=== PATIENT | female | born 1990 | race Two or more races ===

== ENCOUNTER → 2020-02-12 | Outpatient (CLI) | payer BC ==
[~2020-02-12] MED LIST: HYDR-2761 PO; MULT-505 PO; NORE1TAB27 PO
[2020-02-12 12:52] LABS: BASO # 0.1 x10^3/uL (0.0-0.2); BASO % 1 % (0-3); EOS # 0.2 x10^3/uL (0.0-0.7); EOS % 2 % (0-3); HEMATOCRIT 39.4 % (36.0-47.0); HEMOGLOBIN 13.4 g/dL (12.0-15.5); LYMPH # 2.8 x10^3/uL (1.0-4.8); LYMPH % 26 % (24-48); MEAN CORPUSCULAR HEMOGLOBIN 30 pg (25-35); MEAN CORPUSCULAR HGB CONC 34 g/dL (31-37); MEAN CORPUSCULAR VOLUME 88 fL (79-100); MONO # 0.5 x10^3/uL (0.0-1.1); MONO % 5 % (0-9); NEUT % 67 % (31-73); PLATELET COUNT 323 x10^3/uL (140-400); RED BLOOD COUNT 4.46 x10^6/uL (3.50-5.40); RED CELL DISTRIBUTION WIDTH 13.3 % (11.5-14.5); WHITE BLOOD COUNT 10.6 x10^3/uL (4.0-11.0)
[2020-02-12 12:54] LABS: BILIRUBIN,URINE NEGATIVE (NEG); CLARITY,URINE CLEAR; COLOR,URINE YELLOW; NITRITE,URINE NEGATIVE (NEG); PROTEIN,URINE NEGATIVE (NEG-TRACE); UROBILINOGEN,URINE 0.2 mg/dL (0.2 mg/dL)
[2020-02-12 13:03] LABS: SQUAMOUS EPITHELIAL CELL,UR MANY /LPF
[2020-02-12 13:04] LABS: BACTERIA,URINE MODERATE /HPF (0-FEW)
[2020-02-12 13:20] LABS: ALBUMIN 3.4 g/dL (3.4-5.0); ALBUMIN/GLOBULIN RATIO 0.8 (1.0-1.7); CALCIUM 8.9 mg/dL (8.5-10.1); CREATININE 0.8 mg/dL (0.6-1.0); GFR 85.4; POTASSIUM 3.8 mmol/L (3.5-5.1); TOTAL BILIRUBIN 0.3 mg/dL (0.2-1.0); TOTAL PROTEIN 7.8 g/dL (6.4-8.2)
== END | disposition home or self-care (01) ==
LOC: SURGPAT 12:24
PROVIDERS: ATTEND Obstetrics & Gynecology
DX: Z01.812 Encounter for preprocedural laboratory examination (principal); Z20.828 Contact with and (suspected) exposure to other viral communicable diseases
CPT/HCPCS: 80053; 81001; 85025; 87086; U0003

== ENCOUNTER 2020-02-18 07:58 | Observation (INO) | payer BC ==
[~2020-02-18] VITALS: Ht 157.5 cm; Wt 105.0 kg
[~2020-02-18 07:58] MED LIST changes: +HYDROmorphone 2 MG/ML VIAL IV PRN; +IV RINGERS,LACTATED 1000ML 1,000 ML IV SCH; +MORPHINE SULFATE 2 MG/ML VIAL. IV PRN; +ONDANSETRON PF 4 MG/2 ML VIAL. IV PRN; +fentaNYL PF VIAL 100 MCG/2 ML VIAL IV PRN
[2020-02-18] MEDS ORDERED: LIDOCAINE 2% PF 5 ML VIAL. ONE (08:02)
[2020-02-18] MEDS ORDERED: PROPOFOL 10 MG/ML (20ML) VIAL. IV ONE (08:02)
[2020-02-18] MEDS ORDERED: ROCURONIUM 50 MG/5 ML VIAL. ONE ×2 (08:02→11:46)
[2020-02-18] MEDS ORDERED: DEXAMETHASONE SOD PHOS 4 MG/ML VIAL ONE (08:02)
[2020-02-18] MEDS ORDERED: MIDAZOLAM HCL/PF 2 MG/2 ML VIAL. ONE (08:02)
[2020-02-18] MEDS ORDERED: ONDANSETRON PF 4 MG/2 ML VIAL. ONE (08:02)
[2020-02-18] MEDS ORDERED: fentaNYL PF VIAL 250 MCG/5 ML VIAL ONE (08:03)
[2020-02-18] MEDS ORDERED: BUPIVACAINE-EPI 0.5%-1:200000 MPF 30 ML VIAL. ONE (10:28)
[2020-02-18] MEDS ORDERED: INDIGOTINDISULFONATE SODIUM 40 MG/5 ML AMPUL. ONE (10:28)
[2020-02-18] MEDS ORDERED: ESTROGENS, CONJ VAGINAL CREAM 30GM TUBE. ONE (10:30)
[2020-02-18] MEDS ORDERED: SCOPOLAMINE 1.5MG PATCH. TD ONE (10:43)
[2020-02-18] MEDS ORDERED: NEOSTIGMINE METHYLSULFATE 5 MG/5 ML SYRINGE. ONE (12:18)
[2020-02-18] MEDS ORDERED: GLYCOPYRROLATE 1 MG/5 ML VIAL. ONE (12:18)
[2020-02-18] MEDS ORDERED: KETOROLAC 30 MG/ML VIAL. ONE (12:26)
[2020-02-18] MEDS ORDERED: fentaNYL PF VIAL 100 MCG/2 ML VIAL ONE (12:43)
[2020-02-18] MEDS ORDERED: PROCHLORPERAZINE 10 MG/2 ML VIAL. ONE (12:44)
--- NOTE | 2020-02-18 12:45 | PDOC ---
BRIEF OPERATIVE NOTE Date: Feb 18, 2020 Pre-Op Diagnosis menorrhagia, dysmenorrhea Post-Op Diagnosis same Procedure Performed LAVH/Bilateral salpingectomy Surgeon Dr. Adelina Velarde Evp Operations SUSHILA Cotto Anesthesiologist Dr. Pollack Anesthesia Type: General Blood Loss 100cc IV Fluid 1700cc Urine Output 150cc clear via gtz Specimens Obtained cervix, uterus with bilateral tubes Findings mildly enlarged uterus, prior tubal ligation, normal ovaries Complications none Operative Note [id number] ADELINA VELARDE MD Feb 18, 2020 12:45
[2020-02-18] MEDS ORDERED: MAGNESIUM HYDROXIDE 2,400 MG/30 ML ORAL.SUSP. PO PRN (13:00)
[2020-02-18] MEDS ORDERED: diphenhydrAMINE HCL 25 MG CAPSULE PO PRN (13:00)
[2020-02-18] MEDS ORDERED: MAG HYDROX/ALUMINUM HYD/SIMETH 30 ML ORAL.SUSP PO PRN (13:00)
[2020-02-18] MEDS ORDERED: 0.9 % SODIUM CHLORIDE 10 ML DISP.SYRIN. IV PRN (13:00)
[2020-02-18] MEDS ORDERED: LACTULOSE 20 GM/30 ML SOLUTION. PO PRN (13:00)
[2020-02-18] MEDS ORDERED: ZOLPIDEM 5 MG TABLET. PO PRN (13:00)
[2020-02-18] MEDS ORDERED: CALCIUM CARBONATE 500 MG TAB.CHEW PO PRN (13:00)
[2020-02-18] MEDS ORDERED: ONDANSETRON PF 4 MG/2 ML VIAL. IV PRN (13:00)
[2020-02-18] MEDS ORDERED: diphenhydrAMINE 50 MG/ML VIAL IV PRN (13:00)
[2020-02-18] MEDS ORDERED: MORPHINE SULFATE 2 MG/ML VIAL. IV PRN (13:00)
[2020-02-18] MEDS ORDERED: NALOXONE 0.4 MG/ML VIAL. IV PRN (13:00)
[2020-02-18] MEDS ORDERED: SIMETHICONE 80 MG TAB.CHEW PO PRN (13:00)
--- NOTE | 2020-02-18 13:11 | OP ---
DATE OF SURGERY: 02/18/2020 PREOPERATIVE DIAGNOSES: Menorrhagia, dysmenorrhea, failing an outpatient ablation. It was not even done, it was unsuccessful. POSTOPERATIVE DIAGNOSES: Menorrhagia, dysmenorrhea, failing an outpatient ablation, it was not even done, it was unsuccessful. PROCEDURE: Laparoscopic-assisted vaginal hysterectomy, bilateral salpingectomy. SURGEON: Ganga Velarde MD LEAF SUCKER OPERATOR: SUSHILA Cotto ANESTHESIOLOGIST: Chad Pollack MD ANESTHESIA: General. ESTIMATED BLOOD LOSS: 100 mL. URINE OUTPUT: 150 mL, clear via Man catheter. INTRAVENOUS FLUIDS: 1700 mL of Crystalloid. SPECIMENS: Cervix, uterus with segments of bilateral tubes because she had a prior tubal ligation. FINDINGS: Mildly enlarged uterus, prior tubal ligation, normal ovaries. No significant adhesive disease. COMPLICATIONS: None. DESCRIPTION OF PROCEDURE: This patient was taken to the operating room where general anesthesia was placed. The patient was placed in the dorsal lithotomy position in Apollo stirrups. The patient's abdomen and vagina were both prepped and draped in the normal sterile fashion and a Man catheter had been inserted under sterile technique. Upon my arrival, a timeout was performed. Once everyone agreed on the patient, the site, the procedure, antibiotics, the procedure was initiated. A bivalve speculum was placed in the patient's vagina. A single-tooth tenaculum was used to grasp the anterior lip of the cervix. A 10 mL of 0.5% Marcaine with epinephrine was used to circumferentially inject around the cervix for both hemodissection and hemostatic purposes later. The Valtchev uterine manipulator was placed through the endocervical os, locked on the single tooth tenaculum and the bivalve speculum was then removed. Top gloves were discarded and changed. Attention was then turned to the abdomen where a small supraumbilical skin incision was made with the scalpel. A curved Linda was used to dissect through the subcuticular layer to the fascia. The 5 mm Visiport was used to directly into the abdominal cavity. Opening patient pressure was 4-5 mmHg. Carbon dioxide gas was used to then appropriately insufflate the abdominal cavity to maintain a pressure of 15 mmHg. The patient was placed in Trendelenburg position. There was no adhesive disease on the anterior abdominal wall. So, the wall was transilluminated laterally on the right and left sides, finding an area clear of any vasculature, making a small incision and placing the 5 mm disposable trocars in under direct visualization. A 4-5 mL of air was placed in the trocar cuff on the lateral ports. At this point, the port was moved laterally to look at the umbilical port. Once it was in and clear, it was also insufflated with 4-5 mL of air in the trocar cuff. There were some adhesions on the right side over near the appendix area, these were left untouched. The cervix and uterus were elevated. There was nothing behind it. Nothing on the sidewall, so the left tube and ovary were elevated going below the tube above the ovary, cauterizing and cutting the distal segment of the tube came off, the proximal segment was still attached to the uterus. This was done exactly the same on the right side. The distal segment of the tube came off and we were able to pull these out through 5 mm laparoscopic port and they were passed off for pathology. Then crossing the left uteroovarian pedicle, cauterizing and cutting and then the left round ligament, cauterizing and cutting with the LigaSure. This was done exactly the same on the right, crossing the right uteroovarian pedicle, cauterizing and cutting with the LigaSure and then the right round ligament. Once this was done, the bladder flap was elevated, pushing the uterus cephalad to the head with the manipulator and the monopolar hook was used to go across and create the bladder flap sharply and gently pulling it down and make the bladder came immediately down without difficulty. At this point, the uterine vessels were obtained on the right side. Once the bladder was down and staying inside that pedicle going down and hugging the cervix, going down through the cardinal and broad ligaments, taking it down on the right side. The left side was much easier crossing contralaterally hugging the uterus and cervix and just taking bites down to the level of the uterosacral, hugging the cervix, the whole way down and crossing contralaterally and staying vertical right on it, cauterizing and cutting with the LigaSure. Once the bladder was down, there were no adhesions. The uterus was blanched at this point and completely free. All instruments were removed from the abdomen and attention was turned vaginally. The single tooth and Valtchev were removed. A weighted speculum was placed in the patient's vagina. Thyroid Paige clamps were placed on the anterior and posterior lips of the cervix respectively. A scalpel was used to make a circumferential incision in the cervix. An open Ray-Mariano 4 x 4 was used to gently push up the anterior bladder peritoneum and the anterior cul-de-sac was digitally and bluntly entered. The 4 x 4 was taken back out and passed off to the back table and the curved [place] was placed in the anterior cul-de-sac. Cervix was elevated and the posterior cul-de-sac was sharply entered with the curved Mendez scissors. A #0 Vicryl stitch was used to secure the posterior peritoneum here to the vaginal cuff securing the posterior peritoneum to the vaginal cuff, tagging it with a curved Linda clamp and cutting and passing the needle off. The short weighted speculum was then removed and replaced with the long weighted Per speculum in the posterior cul-de-sac. Curved Sunshine clamps x 2 were placed on the patient's left uterosacral ligament where they were doubly clamped with curved Heaneys, cut with curved Mendez scissors and suture ligated x 2 with 0 Vicryl. Second one was taken through the vaginal cuff securing uterosacral ligament to the vaginal cuff, tagging it with a straight Linda clamp and cutting and passing the needle off. This was done exactly the same on the right side, double clamping the uterosacrals with curved Sunshine's, cutting with curved Mendez scissors, suture ligating x 2 with 0 Vicryl, taking the second one through the vaginal cuff and tagging it with a straight Linda clamp. The remaining pedicle on both sides were delineated with the curved mixture and the vaginal LigaSure was used to cauterize and cut the remaining pedicles. The cervix, uterus, and the remainder of the tubes were delivered in toto and passed off for permanent pathology. A sponge stick was used to examine the pedicles. Once they were hemostatic, the anterior bladder peritoneum was grasped with a long Allis. The long Per speculum was removed and replaced with the short weighted vaginal speculum. A 2-0 Vicryl was taken through the anterior bladder peritoneum, left uterosacral ligament, posterior peritoneum and right uterosacral ligament, thus closing the peritoneum in a pursestring like fashion. The right and left uterosacral tags were clipped. The cuff was closed in an anterior to posterior running locked fashion with a full length 2-0 Vicryl and tied to the posterior cuff tag. The cuff was completely hemostatic. At this point, all sponge, lap and needle counts had been correct x 2 by OR personnel. So, all instruments were taken out. All gloves were discarded and changed and attention was turned back above for a second look. She was placed back in Trendelenburg. The gas was reinsufflated. Copious irrigation revealed hemostasis. There was some slight bleeding on the right ovary like above at where the tube was taken off. This was cauterized with the LigaSure with excellent results. An irrigation revealed hemostasis. Tisseel was placed over the vaginal cuff with excellent results and there was nothing at all welling up. The right and left lower quadrant ports, the 4-5 mL of air was taken out of the trocar cuff. They were removed under direct visualization and were hemostatic. Gas was released from the umbilical port. The cuff was taken down and then it was removed. All three port sites had been closed with 4-0 nylon and the patient is being awakened from anesthesia. GANGA VELARDE MD DR: PRINCESS/dominick JOB#: [id number] / [id number]
[2020-02-18] MEDS: PROCHLORPERAZINE 10 MG/2 ML VIAL. IV PRN ×2 (13:15→13:43)
[2020-02-18] MEDS: fentaNYL PF VIAL 100 MCG/2 ML VIAL IV PRN ×2 (13:17→13:23)
[2020-02-18 15:20] VITALS: BP 114/77
[2020-02-18] MEDS: HYDROcodone/APAP 5/325MG 1 TAB TABLET PO PRN ×2 (15:32→19:28)
[2020-02-18 15:35] VITALS: BP 115/74
[2020-02-18 16:00] VITALS: BP 124/78
[2020-02-18 16:15] VITALS: BP 130/88
[2020-02-18 17:33] VITALS: BP 132/79
[2020-02-18 20:00] VITALS: BP 117/79
[2020-02-18] MEDS: oxyCODONE/APAP 5/325 1 TAB TABLET PO PRN (23:22)
[2020-02-19] VITALS: BP 115/70
[2020-02-19] MEDS: oxyCODONE/APAP 5/325 1 TAB TABLET PO PRN ×2 (04:27→09:07)
[2020-02-19 04:33] VITALS: BP 100/66
[2020-02-19 07:30] VITALS: BP 130/91
[2020-02-19 08:33] LABS: CALCIUM 8.7 mg/dL (8.5-10.1); CREATININE 0.8 mg/dL (0.6-1.0); GFR 84.8; POTASSIUM 4.4 mmol/L (3.5-5.1)
--- NOTE | 2020-02-19 08:58 | PDOC ---
SURGICAL PROGRESS NOTE DATE: 02/19/20 TIME: 08:50 Subjective Doing well without complaints. No n/v and tolerating a regular diet. Ambulating well. feeling good Vital Signs Vital Signs Date Time Temp Pulse Resp B/P (MAP) Pulse Ox O2 Delivery O2 Flow Rate FiO2 02/19/20 07:30 98.3 97 18 130/91 (104) 95 Room Air 98.3 02/18/20 15:20 10.0 I&O Intake and Output0 02/19/20 07:00 Intake Total 2970 ml Output Total 550 ml Balance 2420 ml Intake Oral 1120 ml IV Total 1850 ml Output Urine Total 450 ml Estimated Blood Loss 100 ml # Voids 4 PATIENT HAS A WHEATLEY: No General: Alert, Oriented X3, Cooperative, No acute distress HEENT: Atraumatic Heart: Regular rate Abdomen: Soft, No tenderness, Other (all port sites c/d/i) Extremities: No clubbing, No cyanosis, No edema Skin: No rashes, No breakdown Neuro: Normal speech Psych/Mental Status: Mental status NL, Mood NL Labs Laboratory Tests Test 02/18/20 08:39 02/19/20 07:05 Bedside Urine HCG, Qualitative Hcg negative (Negative) Hematocrit 35.4 % (36.0-47.0) Sodium Level 139 mmol/L (136-145) Potassium Level 4.4 mmol/L (3.5-5.1) Chloride Level 104 mmol/L (98-107) Carbon Dioxide Level 28 mmol/L (21-32) Anion Gap 7 (6-14) Blood Urea Nitrogen 9 mg/dL (7-20) Creatinine 0.8 mg/dL (0.6-1.0) Estimated GFR (Cockcroft-Gault) 84.8 Glucose Level 102 mg/dL (70-99) Calcium Level 8.7 mg/dL (8.5-10.1) Laboratory Tests Test 02/19/20 07:05 Hematocrit 35.4 % (36.0-47.0) Sodium Level 139 mmol/L (136-145) Potassium Level 4.4 mmol/L (3.5-5.1) Chloride Level 104 mmol/L (98-107) Carbon Dioxide Level 28 mmol/L (21-32) Anion Gap 7 (6-14) Blood Urea Nitrogen 9 mg/dL (7-20) Creatinine 0.8 mg/dL (0.6-1.0) Estimated GFR (Cockcroft-Gault) 84.8 Glucose Level 102 mg/dL (70-99) Calcium Level 8.7 mg/dL (8.5-10.1) I have reviewed the following labs, vitals, nursing Cardiovascular: No pertinent hx Pulmonary: No pertinent hx GI: No pertinent hx Heme/Onc: No pertinent hx Psych: No pertinent hx Infectious disease: No pertinent hx ENT: No pertinent hx Assessment/Plan POD#1 s/p LAVH/bilateral salpingectomy Routine PO care d/c to home later today NPV x 6 weeks light/limited activity x [address] for at least one week or while on narcotic pain meds keep scheduled follow up with me in one week already has narcotics at home ok to resume any home meds upon discharge call or return sooner for any other questions or concerns not limited to but including pain unrelieved with pain meds, increased or unexplained vaginal bleeding or T>100.4 Justicifation of Admission Dx: Justifications for Admission: Justification of Admission Dx: Yes GANGA MONTES DE OCA MD Feb 19, 2020 08:58
--- NOTE | 2020-02-19 09:02 | PDOC3 ---
Discharge Summary Visit Information Date of Admission: Feb 18, 2020 Date of Discharge: Feb 19, 2020 Final Diagnosis menorrhagia Brief Hospital Course Allergies Allergies Coded Allergies Type Severity Reaction Last Updated Verified No Known Drug Allergies 02/12/20 No Vital Signs Vital Signs Date Time Temp Pulse Resp B/P (MAP) Pulse Ox O2 Delivery O2 Flow Rate FiO2 02/19/20 07:30 98.3 97 18 130/91 (104) 95 Room Air 98.3 02/18/20 15:20 10.0 Lab Results Laboratory Tests Test 02/18/20 08:39 02/19/20 07:05 Bedside Urine HCG, Qualitative Hcg negative (Negative) Hematocrit 35.4 % (36.0-47.0) Sodium Level 139 mmol/L (136-145) Potassium Level 4.4 mmol/L (3.5-5.1) Chloride Level 104 mmol/L (98-107) Carbon Dioxide Level 28 mmol/L (21-32) Anion Gap 7 (6-14) Blood Urea Nitrogen 9 mg/dL (7-20) Creatinine 0.8 mg/dL (0.6-1.0) Estimated GFR (Cockcroft-Gault) 84.8 Glucose Level 102 mg/dL (70-99) Calcium Level 8.7 mg/dL (8.5-10.1) Laboratory Tests Test 02/19/20 07:05 Hematocrit 35.4 % (36.0-47.0) Sodium Level 139 mmol/L (136-145) Potassium Level 4.4 mmol/L (3.5-5.1) Chloride Level 104 mmol/L (98-107) Carbon Dioxide Level 28 mmol/L (21-32) Anion Gap 7 (6-14) Blood Urea Nitrogen 9 mg/dL (7-20) Creatinine 0.8 mg/dL (0.6-1.0) Estimated GFR (Cockcroft-Gault) 84.8 Glucose Level 102 mg/dL (70-99) Calcium Level 8.7 mg/dL (8.5-10.1) Brief Hospital Course Ms. Teran is a 30 old female who presented with menorrhagia desiring defi nitive therapy. She underwent LAVH with bilateral salpingectomy yesterday without complications. She has had an unremarkable postoperative course. She is ambulating, voiding without catheter, tolerating regular diet. She will be discharged home later today. Assessment Assessment POD#1 s/p LAVH/bilateral salpingectomy Routine PO care d/c to home later today NPV x 6 weeks light/limited activity x [address] for at least one week or while on narcotic pain meds keep scheduled follow up with me in one week already has narcotics at home ok to resume any home meds upon discharge call or return sooner for any other questions or concerns not limited to but including pain unrelieved with pain meds, increased or unexplained vaginal bleeding or T>100.4 Discharge Information Condition at Discharge: Improved Follow Up: Weeks Disposition/Orders: D/C to Home Scheduled Info (No Known Medications Prior To Admisstion) Each, 1 EACH MC DAILY for none, (Reported) Entered as Reported by: Diana Hall on 02/12/20 [id number] Patient Instructions Patient Instructions POD#1 s/p LAVH/bilateral salpingectomy Routine PO care d/c to home later today NPV x 6 weeks light/limited activity x [address] for at least one week or while on narcotic pain meds keep scheduled follow up with me in one week already has narcotics at home ok to resume any home meds upon discharge call or return sooner for any other questions or concerns not limited to but including pain unrelieved with pain meds, increased or unexplained vaginal bleeding or T>100.4 Justicifation of Admission Dx: Justifications for Admission: Justification of Admission Dx: Yes GANGA MONTES DE OCA MD Feb 19, 2020 09:02
[2020-02-19 09:50] VITALS: BP 128/81
--- NOTE | 2020-02-22 15:08 | PATHOLOGY ---
[facility] Accession Number: [id number] . 01 Material submitted: . uterus - CERVIX, UTERUS, BILATERAL TUBES . 01 Clinical history: . EXCESSIVE MENSES . 02 Diagnosis: Uterus and detached fallopian tubes, hysterectomy and bilateral salpingectomy: - Adenomyosis, uterine corpus, focal (uterine weight 113 grams). - Mild chronic cervicitis with focal squamous metaplasia. - Weakly secretory endometrium. - Paratubal cyst, side indeterminate. (JPM:pranav; 02/22/2020) [facility] [place] 02/22/2020 1241 Local . 02 Comment: There is no atypia or evidence of malignancy. (JPM:pranav; 02/22/2020) . 02 Electronically signed: . Kiran Obando MD, Pathologist NPI- [id number] . 01 Gross description: . The specimen is received in formalin labeled " Amna Vigeliangreen, cervix, uterus, bilateral tubes". Received is a 113 g, 9.7 x 5.9 x 4.4 cm uterus with attached cervix and detached fallopian tubes, weighing 1 g each. The uterine serosa is pink-pizarro and smooth in appearance with a single subserosal nodule at the fundal aspect measuring 0.7 cm. The 2.0 cm cervical os is surrounded by pink-pizarro, smooth to slightly disrupted ectocervical mucosa. The uterus is oriented using the peritoneal reflection and the anterior paracervical margin is inked black. The uterus is opened laterally to reveal a pale pizarro, corrugated endocervical canal measuring 2.5 cm in length. The endometrial cavity is triangular measuring 5.1 cm in length by 2.3 cm in width. The endometrium is pale piazrro, glistening to slightly hemorrhagic in appearance and measures 0.1 cm in thickness. Serial sectioning reveals a pizarro-pink, trabeculated myometrium measuring up to 2.0 cm in thickness with no grossly distinct nodules or lesions. . The first fimbriated fallopian tube measures 1.0 cm in length by 0.5 cm in diameter. The serosal surface is inked black. Sectioning reveals a patent lumen. . The second fimbriated fallopian tube measures 1.1 cm in length by 0.5 cm in diameter. There is an attached paratubal cyst identified measuring 1.0 cm filled with clear fluid. Sectioning reveals a patent lumen. The specimen is submitted representatively as follows: . A1 12:00 cervix A2 6:00 cervix A3 entire subserosal nodule A4 anterior endomyometrium A5 posterior endomyometrium A6 insurance follow up representative sections from each fallopian tube. (CAA; 02/19/2020) [facility] 02/19/2020 1618 Local . 02 Pathologist provided ICD-10: N80.0, N72, N83.8 . 02 CPT . 953933 Specimen Comment: A courtesy copy of this report has been sent to [phone], [phone] Specimen Comment: [id number] Specimen Comment: Report sent to / DR GARCIA Performed at: 01 [facility] [address], [place], [place] [id number] MD Huber Coburn MD Phone: [phone] Performed at: 02 [facility] [address], [place] [id number] MD Kiran Obando MD Phone: [phone]
== END 2020-02-19 10:05 | disposition home or self-care (01) ==
LOC: SURG 07:58 → 3 NORTH 13:00 → INTOOBSV 13:00 → OBSVTOIN 13:00
PROVIDERS: ADMIT Obstetrics & Gynecology; ATTEND Obstetrics & Gynecology
DX: N94.6 Dysmenorrhea, unspecified (principal); N92.0 Excessive and frequent menstruation with regular cycle
CPT/HCPCS: 36415; 58552; 80048; 81025; 85014; 86850; 86900; 86901; 96361; 96365; 96366; A7015; G0378; G0379; J0690; J0780; J1100; J1885; J2250; J2405; J2704; J2710; J3010; J3480; J3490; J7030; J7120

== ENCOUNTER 2020-06-21 03:46 | Emergency (ER) | payer BC ==
[~2020-06-21] VITALS: Ht 157.5 cm; Wt 100.0 kg
[~2020-06-21 03:46] MED LIST changes: -HYDROmorphone 2 MG/ML VIAL IV PRN; -IV RINGERS,LACTATED 1000ML 1,000 ML IV SCH; -MORPHINE SULFATE 2 MG/ML VIAL. IV PRN; -ONDANSETRON PF 4 MG/2 ML VIAL. IV PRN; -fentaNYL PF VIAL 100 MCG/2 ML VIAL IV PRN
--- NOTE | 2020-06-21 03:59 | ED.ADGEN ---
General Adult EDM: Chief Complaint: FLANK PAIN HPI: HPI: Patient is a 30 year old female for right flank pain. Says the pain started about a day and a half ago is gradually getting worse. Has moved slightly down side from her back. Patient states she has a known history of kidney stones is hypothyroid several times. Recently had an ultrasound done by her primary care for her liver who noted there were several stones in the right kidney. Says she has had a difficult time urinating. Has the urge to urinate but only very little comes out. Has had several episodes of vomiting. Change in bowel movements. No fevers, cough. Her quarantined for Covid and he was diagnosed +3 weeks ago and abdomen quarantine for over a week. Review of Systems: Review of Systems: All other systems within normal limits except for as noted in the HPI Current Medications: Current Medications Medications (Trade) Dose Ordered Sig/Barbara Start Time Stop Time Status Last Admin Dose Admin Fentanyl Citrate (Fentanyl 2ml Vial) 100 mcg STK-MED ONCE 06/21/20 04:01 06/21/20 04:02 DC Ketorolac Tromethamine (Toradol 15mg Vial) 15 mg STK-MED ONCE 06/21/20 04:01 06/21/20 04:02 DC Ondansetron HCl (Zofran) 4 mg STK-MED ONCE 06/21/20 04:01 06/21/20 04:02 DC Allergies: Allergies: Allergies Coded Allergies Type Severity Reaction Last Updated Verified No Known Drug Allergies 02/12/20 No Physical Exam: PE: Constitutional: Well developed, well nourished, severe acute distress, non-toxic appearance. [] HENT: Normocephalic, atraumatic, bilateral external ears normal, nose normal. [] Eyes: PERRLA, conjunctiva normal, no discharge. [] Neck: No rigidity, supple, no stridor. [] Cardiovascular: Regular rate and rhythm, brisk cap refill [] Lungs & Thorax: Non labored symmetric respirations, no tachypnea or respiratory distress [] Abdomen: Soft, nondistended. Skin: Warm, dry, no erythema, no rash. [] Back: Unremarkable, right CVA tenderness Extremities: No deformities, range of motion grossly intact, no lower extremity edema [] Neurologic: Alert and oriented X 3, no focal deficits noted. [] Psychologic: Affect normal, judgement normal, mood normal. [] Current Patient Data: Labs: Laboratory Tests Test 06/21/20 04:00 06/21/20 04:20 White Blood Count 10.9 x10^3/uL (4.0-11.0) Red Blood Count 4.54 x10^6/uL (3.50-5.40) Hemoglobin 13.7 g/dL (12.0-15.5) Hematocrit 39.8 % (36.0-47.0) Mean Corpuscular Volume 88 fL (79-100) Mean Corpuscular Hemoglobin 30 pg (25-35) Mean Corpuscular Hemoglobin Concent 35 g/dL (31-37) Red Cell Distribution Width 13.0 % (11.5-14.5) Platelet Count 336 x10^3/uL (140-400) Neutrophils (%) (Auto) 55 % (31-73) Lymphocytes (%) (Auto) 33 % (24-48) Monocytes (%) (Auto) 9 % (0-9) Eosinophils (%) (Auto) 2 % (0-3) Basophils (%) (Auto) 1 % (0-3) Neutrophils # (Auto) 6.0 x10^3/uL (1.8-7.7) Lymphocytes # (Auto) 3.6 x10^3/uL (1.0-4.8) Monocytes # (Auto) 1.0 x10^3/uL (0.0-1.1) Eosinophils # (Auto) 0.2 x10^3/uL (0.0-0.7) Basophils # (Auto) 0.1 x10^3/uL (0.0-0.2) Sodium Level 140 mmol/L (136-145) Potassium Level 3.5 mmol/L (3.5-5.1) Chloride Level 103 mmol/L (98-107) Carbon Dioxide Level 22 mmol/L (21-32) Anion Gap 15 (6-14) H Blood Urea Nitrogen 11 mg/dL (7-20) Creatinine 0.9 mg/dL (0.6-1.0) Estimated GFR (Cockcroft-Gault) 74.0 BUN/Creatinine Ratio 12 (6-20) Glucose Level 108 mg/dL (70-99) H Calcium Level 9.5 mg/dL (8.5-10.1) Total Bilirubin 0.3 mg/dL (0.2-1.0) Aspartate Amino Transferase (AST) 97 U/L (15-37) H Alanine Aminotransferase (ALT) 210 U/L (14-59) H Alkaline Phosphatase 93 U/L (46-116) Total Protein 8.2 g/dL (6.4-8.2) Albumin 3.7 g/dL (3.4-5.0) Albumin/Globulin Ratio 0.8 (1.0-1.7) L Lipase 71 U/L (73-393) L Urine Collection Type U cath Urine Color Rupinder Urine Clarity Clear Urine pH 5.5 (<5.0-8.0) Urine Specific Webster >=1.030 (1.000-1.030) Urine Protein 30 mg/dL (NEG-TRACE) Urine Glucose (UA) Negative mg/dL (NEG) Urine Ketones (Stick) Negative mg/dL (NEG) Urine Blood Large (NEG) Urine Nitrite Negative (NEG) Urine Bilirubin Negative (NEG) Urine Urobilinogen Dipstick 0.2 mg/dL (0.2 mg/dL) Urine Leukocyte Esterase Small (NEG) Urine RBC Tntc /HPF (0-2) Urine WBC 5-10 /HPF (0-4) Urine Squamous Epithelial Cells Mod /LPF Urine Bacteria Few /HPF (0-FEW) Urine Mucus Mod /LPF Laboratory Tests 06/21/20 04:00 Laboratory Tests 06/21/20 04:00 Vital Signs: Vital Signs Date Time Temp Pulse Resp B/P (MAP) Pulse Ox O2 Delivery O2 Flow Rate FiO2 06/21/20 04:05 20 06/21/20 03:55 98.0 77 142/78 (99) 96 Room Air 98.0 EKG: EKG: [] Heart Score: Risk Factors: Risk Factors: DM, Current or recent (<one month) smoker, HTN, HLP, family history of CAD, obesity. Risk Scores: Score 0 - 3: 2.5% MACE over next 6 weeks - Discharge Home Score 4 - 6: 20.3% MACE over next 6 weeks - Admit for Clinical Observation Score 7 - 10: 72.7% MACE over next 6 weeks - Early Invasive Strategies Radiology/Procedures: Radiology/Procedures: CT abdomen and pelvis without contrast PQRS statement: CT scans at this facility use dose reduction including either au tomated exposure control, iterative reconstructions, and /or weight based radiation dosing via mA and kV modification when appropriate to reduce radiation dose to as low as reasonably achievable. HISTORY: Right flank pain. Kidney stone. Abdomen findings: Liver, gallbladder, pancreas, spleen, adrenal glands unremarkable. Nonobstructing left renal calculi. Mild right renal hydronephrosis renal pelvis diameter 2 cm and dilation of the ureter associated with a 3 mm right ureterovesical junction obstructing calculus. Appendix is negative. No obstruction or inflammation the GI tract. No abdominal fluid. Pelvis findings: Hysterectomy. 3 mm right ureterovesical junction calculus of the bladder. Ovaries, rectum and bones are unremarkable. IMPRESSION: 1. Mild right renal hydronephrosis associated with a 3 mm obstructing ureterovesical junction calculus. 2. Nonobstructive left nephrolithiasis. 3. Appendix is negative.[] Course & Med Decision Making: Course & Med Decision Making Pertinent Labs and Imaging studies reviewed. (See chart for details) [] Patient's pain is improved and is tolerable. Discussed patient's history of millimeter stone with an 80% past rate. Will give antiemetics, pain control and tamsulosin. Patient has a urologist and will call when the office opens to schedule follow-up appointment. Given return precautions. Small amount of white cells and leuk esterase in urine without significant evidence of infection. Likely due to large amount of red blood cells. Moderate squames cells with only few bacteria. More consistent with contamination Bello Disclaimer: Bello Disclaimer: This electronic medical record was generated, in whole or in part, using a voice recognition dictation system. Departure Departure Impression: Primary Impression: Kidney stone on right side Disposition: 01 DC HOME SELF CARE/HOMELESS Condition: IMPROVED Referrals: WARREN GARCIA (PCP) Patient Instructions: Diet for Kidney Stones Additional Instructions: Take ibuprofen and oxycodone for pain. Take ondansetron for nausea give 20 minutes to work before eating or taking other medications. Take tamsulosin nightly, may discontinue when stone is passed. Scripts Ondansetron (ONDANSETRON ODT) 4 Mg Tab.rapdis 1 TAB PO PRN Q6-8HRS PRN for NAUSEA for 5 Days, #16 TAB Prov: MASOOD FIGUEROA MD 06/21/20 Oxycodone/Apap 5-325 (PERCOCET 5-325 MG TABLET ) 1 Each Tablet 1 TAB PO PRN Q6HRS PRN for PAIN for 3 Days, #12 TAB 0 Refills Prov: MASOOD FIGUEROA MD 06/21/20 Ibuprofen (IBUPROFEN) 800 Mg Tablet 800 MG PO PRN Q8HRS PRN for PAIN for 30 Days, #20 TAB Prov: MASOOD FIGUEROA MD 06/21/20 Tamsulosin Hcl (FLOMAX) 0.4 Mg Cap.er.24h 1 CAP PO QHS for kidney stone for 10 Days, #10 CAP 11 Refills Prov: MASOOD FIGUEROA MD 06/21/20 MASOOD FIGUEROA MD Jun 21, 2020 03:59
[2020-06-21] MEDS ORDERED: fentaNYL PF VIAL 100 MCG/2 ML VIAL ONE (04:01)
[2020-06-21] MEDS ORDERED: KETOROLAC 15 MG/ML VIAL. ONE (04:01)
[2020-06-21] MEDS ORDERED: ONDANSETRON PF 4 MG/2 ML VIAL. ONE (04:01)
[2020-06-21 04:08] LABS: BASO # 0.1 x10^3/uL (0.0-0.2); BASO % 1 % (0-3); EOS # 0.2 x10^3/uL (0.0-0.7); EOS % 2 % (0-3); HEMATOCRIT 39.8 % (36.0-47.0); HEMOGLOBIN 13.7 g/dL (12.0-15.5); LYMPH # 3.6 x10^3/uL (1.0-4.8); LYMPH % 33 % (24-48); MEAN CORPUSCULAR HEMOGLOBIN 30 pg (25-35); MEAN CORPUSCULAR HGB CONC 35 g/dL (31-37); MEAN CORPUSCULAR VOLUME 88 fL (79-100); MONO % 9 % (0-9); NEUT % 55 % (31-73); PLATELET COUNT 336 x10^3/uL (140-400); RED BLOOD COUNT 4.54 x10^6/uL (3.50-5.40); WHITE BLOOD COUNT 10.9 x10^3/uL (4.0-11.0)
[2020-06-21 04:27] LABS: BILIRUBIN,URINE NEGATIVE (NEG); CLARITY,URINE CLEAR; COLOR,URINE AMBER; NITRITE,URINE NEGATIVE (NEG); PH,URINE 5.5 (<5.0-8.0); PROTEIN,URINE 30 mg/dL (NEG-TRACE); UROBILINOGEN,URINE 0.2 mg/dL (0.2 mg/dL)
[2020-06-21] MEDS ORDERED: fentaNYL PF VIAL 100 MCG/2 ML VIAL IVP ONE (04:30)
[2020-06-21] MEDS ORDERED: ONDANSETRON PF 4 MG/2 ML VIAL. IVP ONE (04:30)
[2020-06-21] MEDS ORDERED: KETOROLAC 15 MG/ML VIAL. IVP ONE (04:30)
[2020-06-21 04:34] LABS: BACTERIA,URINE FEW /HPF (0-FEW); RBC,URINE TNTC /HPF (0-2)
--- NOTE | 2020-06-21 04:42 | RAD ---
CT abdomen and pelvis without contrast PQRS statement: CT scans at this facility use dose reduction including either automated exposure cont rol, iterative reconstructions, and /or weight based radiation dosing via mA and kV modification when appropriate to reduce radiation dose to as low as reasonably achievable. HISTORY: Right flank pain. Kidney stone. Abdomen findings: Liver, gallbladder, pancreas, spleen, adrenal glands unremarkable. Nonobstructing l eft renal calculi. Mild right renal hydronephrosis renal pelvis diameter 2 cm and dilation of the ure ter associated with a 3 mm right ureterovesical junction obstructing calculus. Appendix is negative. No obstruction or inflammation the GI tract. No abdominal fluid. Pelvis findings: Hysterectomy. 3 mm right ureterovesical junction calculus of the bladder. Ovaries, r ectum and bones are unremarkable. IMPRESSION: 1. Mild right renal hydronephrosis associated with a 3 mm obstructing ureterovesical junction calculu s. 2. Nonobstructive left nephrolithiasis. 3. Appendix is negative. Electronically signed by: Kuldeep Meehan MD (06/21/2020 4:40 AM) [facility]
[2020-06-21 04:53] VITALS: BP 133/75
[2020-06-21 04:53] LABS: CALCIUM 9.5 mg/dL (8.5-10.1); CREATININE 0.9 mg/dL (0.6-1.0); POTASSIUM 3.5 mmol/L (3.5-5.1)
[2020-06-21 05:00] LABS: ALBUMIN 3.7 g/dL (3.4-5.0); ALBUMIN/GLOBULIN RATIO 0.8 (1.0-1.7); TOTAL BILIRUBIN 0.3 mg/dL (0.2-1.0); TOTAL PROTEIN 8.2 g/dL (6.4-8.2)
[2020-06-21] MEDS ORDERED: OXYC1TAB15 PO (05:13)
[2020-06-21] MEDS ORDERED: TAMS0.4C97 PO (05:13)
[2020-06-21] MEDS ORDERED: ONDA4TAB12 PO (05:13)
[2020-06-21] MEDS ORDERED: IBUP-1060 PO (05:13)
[2020-06-21] MEDS ORDERED: TAMSULOSIN 0.4 MG CAP.ER.24H. PO ONE (05:30)
[2020-06-21] MEDS ORDERED: oxyCODONE/APAP 5/325 1 TAB TABLET PO ONE (05:30)
== END 2020-06-21 05:25 | disposition home or self-care (01) ==
LOC: ER 03:46
DX: N13.2 Hydronephrosis with renal and ureteral calculous obstruction (principal); R10.9 Unspecified abdominal pain; R11.2 Nausea with vomiting, unspecified; E03.9 Hypothyroidism, unspecified; Z87.442 Personal history of urinary calculi
CPT/HCPCS: 36415; 74176; 80053; 81001; 83690; 85025; 87086; 96374; 96375; 99284; J1885; J2405; J3010

== ENCOUNTER 2020-06-25 18:37 | Emergency (ER) | payer BC ==
[~2020-06-25] VITALS: Ht 157.5 cm; Wt 99.1 kg
[~2020-06-25 18:37] MED LIST changes: +IBUP-1060 PO; +ONDA4TAB12 PO; +OXYC1TAB15 PO; +TAMS0.4C97 PO
[2020-06-25 19:23] VITALS: BP 129/82
[2020-06-25] MEDS ORDERED: PRED50TA PO (19:52)
--- NOTE | 2020-06-25 19:53 | PHYS DOC ---
Past Medical History Past Medical History: Kidney Stone, Other Additional Past Medical Histor: gestational diabetes, FATTY LIVER Past Surgical History: Hysterectomy, Tubal ligation, Other Additional Past Surgical Histo: lithotripsy, breast reduction Smoking Status: Never Smoker Alcohol Use: Rarely General Adult EDM: Chief Complaint: ALLERGIC REACTION HPI: HPI: Patient is a 30 year old female presenting stating she believes she has an allergic reaction to Flomax. Patient states she was put on several medications including Flomax, naproxen and oxycodone on June 21, 2020 which is roughly 4 days ago for kidney stone. She states she has never taken Flomax before. She states she took first dose of flomax in the ED on June 21, 2020 with no issues. She states yesterday she took a dose of flomax with the other medicine and today she noted she had blotches on her forearms. She also states she felt her tongue was swollen and she had a forehead rash. She went to urgent care where she was given a steroid injection and instructed to take Zyrtec when she gets home which she took. She states symptoms subsided then returned. She states she was told to come to the ED. Denies any difficulty swallowing. Denies any lip swelling. Denies any throat swelling. Review of Systems: Review of Systems: Constitutional: Denies fever or chills. [] Eyes: Denies change in visual acuity. [] HENT: Reports tongue swelling. Denies nasal congestion or sore throat. [] Respiratory: denies cough or shortness of breath. [] Cardiovascular: Denies chest pain or edema. [] GI: Denies abdominal pain, nausea, vomiting, bloody stools or diarrhea. [] : Denies dysuria. [] Musculoskeletal: Denies back pain or joint pain. [] Integument: Reports rash. Neurologic: Denies headache, focal weakness or sensory changes. [] Psychiatric: Denies depression or anxiety. [] Heart Score: Risk Factors: Risk Factors: DM, Current or recent (<one month) smoker, HTN, HLP, family history of CAD, obesity. Risk Scores: Score 0 - 3: 2.5% MACE over next 6 weeks - Discharge Home Score 4 - 6: 20.3% MACE over next 6 weeks - Admit for Clinical Observation Score 7 - 10: 72.7% MACE over next 6 weeks - Early Invasive Strategies Allergies: Allergies: Allergies Coded Allergies Type Severity Reaction Last Updated Verified No Known Drug Allergies 02/12/20 No Physical Exam: PE: Constitutional: Well developed, well nourished, no acute distress, non-toxic appearance. [] HENT: Normocephalic, atraumatic, bilateral external ears normal, oropharynx moist, no oral exudates, nose normal. Airway is open, no throat tongue or lip swelling noted. Eyes: PERRLA, EOMI, conjunctiva normal, no discharge. [] Neck: Normal range of motion, no tenderness, supple, no stridor. [] Cardiovascular:Heart rate regular rhythm, no murmur [] Lungs & Thorax: Bilateral breath sounds clear to auscultation [] Abdomen: Bowel sounds normal, soft, no tenderness, no masses, no pulsatile masses. [] Skin: Warm, dry, no erythema, no rash. [] Back: No tenderness, no CVA tenderness. [] Extremities: No tenderness, no cyanosis, no clubbing, ROM intact, no edema. [] Neurologic: Alert and oriented X 3, normal motor function, normal sensory function, no focal deficits noted. [] Psychologic: Affect normal, judgement normal, mood normal. [] Current Patient Data: Vital Signs: Vital Signs Date Time Temp Pulse Resp B/P (MAP) Pulse Ox O2 Delivery O2 Flow Rate FiO2 06/25/20 18:59 98.0 71 16 153/71 (98) 97 Room Air 98.0 EKG: EKG: [] Radiology/Procedures: Radiology/Procedures: [] Course & Med Decision Making: Course & Med Decision Making Pertinent Labs and Imaging studies reviewed. (See chart for details) This is a 30-year-old female patient presenting to the ED today complaining of an allergic reaction to what she believes is Flomax. Patient was started on Flomax 4 days ago for kidney stone. She was also started on oxycodone and naproxen as well. She took first dose of Flomax 4 days ago. Took another dose yesterday. She states this morning she had blotches and her tongue was swollen. She was seen at urgent care where they gave her steroid injection. She was also instructed to take Zyrtec which she did. She states symptoms subsided then returned and she was asked to come to the ED. She arrives in the ED with no signs or symptoms of allergic reaction, no rash noted, no throat or tongue swelling noted. Airway is open. Instructed patient she can stop the Flomax if she believes this is the source of her symptoms. Encourage her to take omeprazole which she has a prescription for. Encourage her to take Benadryl and give a prescription for prednisone for 5 days. Provided return precautions. Dragon Disclaimer: Dragon Disclaimer: This electronic medical record was generated, in whole or in part, using a voice recognition dictation system. Departure Departure Impression: Primary Impression: Allergic reaction Qualified Codes: T78.40XA - Allergy, unspecified, initial encounter Disposition: 01 DC HOME SELF CARE/HOMELESS Condition: STABLE Referrals: WARREN GARCIA (PCP) follow up with your doctor next week Patient Instructions: Drug Allergy, [id number] Additional Instructions: Please stop Flomax Take Benadryl as discussed, take omeprazole every day as discussed, continue taking the prescribed prednisone until completed. Follow-up with your doctor next week Scripts Prednisone (PREDNISONE) 50 Mg Tablet 1 TAB PO DAILY, #5 TAB Prov: CHAVO MOLINA APRN 06/25/20 CHAVO MOLINA APRN Jun 25, 2020 19:52
== END 2020-06-25 19:59 | disposition home or self-care (01) ==
LOC: ER 18:37
DX: T78.40XA Allergy, unspecified, initial encounter (principal)
CPT/HCPCS: 99283